=== PATIENT | female | born 1990 | race Caucasian/White ===

== ENCOUNTER 2019-04-08 04:12 | Inpatient (IN) ==
[2019-04-08] MEDS ORDERED: CLINDAMYCIN 600 MG/54 ML BAG IV ONE (04:29)
[2019-04-08] MEDS ORDERED: KETOROLAC TROMETHAMINE 15 MG/ML VIAL IV STA (04:29)
--- NOTE | 2019-04-08 04:36 | Emergency Department Note ---
History of Present Illness General Chief complaint: Facial Injury/Pain Stated complaint: ABSCESS IN MOUTH History of Present Illness Maximum Pain Intensity: 6 This 29-year-old presents to the ER complaining of worsening infection to her left lower jawline Location: Left lower jawline and face Quality: Throbbing Severity: Moderate Duration: Past week Timing: Started over a week ago Context: Symptoms got worse and patient came in Modifying factors: better with nothing; worse with palpation Patient was seen here and placed on Augmentin. Patient went to [facility] and was placed on clindamycin and had a CAT scan that showed an abscess. She was not referred to oral surgery. She was informed that this would resolve on its own with oral antibiotics. Patient states since being seen at [facility] the infection is gotten worse. She is now having difficulty opening her mouth all the way. Patient still smokes. Patient denies chest pain, dyspnea, fevers, neck stiffness, tongue swelling. Home Medications Home Medications Medication Instructions Recorded Confirmed Type L norgest/e.estradiol-e.estrad 1 tab PO DAILY 02/26/19 04/08/19 History [Seasonique] ferrous sulfate [iron] 325 mg PO DAILY 02/26/19 04/08/19 History fluoxetine [Prozac] 40 mg PO DAILY 02/26/19 04/08/19 History omeprazole 40 mg PO DAILY PRN 02/26/19 04/08/19 History clindamycin HCl 450 mg PO TID 04/08/19 04/08/19 History Allergies Allergy/AdvReac Type Severity Reaction Status Date / Time No Known Allergies Allergy Unverified 04/08/19 05:50 Past Med/Surg History Medical History Depression GERD (gastroesophageal reflux disease) IBS (irritable bowel syndrome) Surgical History No pertinent past surgical history Social History Preferred Language: German Feels Safe at Home: Yes Smoking Status: Current every day smoker Review of Systems A total of 10 systems reviewed and were otherwise negative Physical Exam Vital Signs Vital Signs - 24 hr 04/08/19 04:14 04/08/19 05:16 Temperature 36.9 C Temperature Source Oral Pulse Rate 100 H Pulse Rate [Finger] 91 H Respiratory Rate 18 18 Respiratory Effort / Characteristics Non-Labored Spontaneous Respiratory Depth Normal Normal Blood Pressure 144/93 H Blood Pressure [Left Arm] 133/93 Blood Pressure Mean 110 Blood Pressure Mean [Left Arm] 106 Pulse Oximetry 99 96 Oxygen Delivery Method Room Air Room Air Sepsis Recent Fever Within 48 Hours No Sepsis New/Unexplained Change in Mental Status No Sepsis Action Taken by Nursing No Action Required VITALS: Vitals are noted on the nurse's note and reviewed by myself. Vital signs stable. GENERAL: White female with tobacco odor speaking in full sentences, in no acute distress, nondiaphoretic, well-developed well-nourished. SKIN: The skin was without rashes, erythema, edema, or bruising. There is no tenting of the skin. Capillary reflex less than 2 seconds. HEAD: Normocephalic atraumatic. Face: Left lower jawline edematous and tender to palpation concerning for infection. EARS: External auditory canals clear, tympanic membranes pearly charkaborty without janet thema or effusion bilaterally. EYES: Pupils equal round and reactive to light and accommodation. Conjunctivae without injection, sclerae without icterus. Extraocular movements intact. NOSE: Patent, turbinates without inflammation or discharge. No sinus tenderness. MOUTH: Mucous membranes moist. Pharynx without erythema or exudate. Uvula midline. Airway patent. Tongue does not deviate. No Mj's angina.+ Trismus Dental exam: Left lower gumline erythematous and edematous concerning for infection. NECK: Supple without nuchal rigidity. Left anterior and submandibular shotty lymphadenopathy. No thyromegaly. Cervical spine is nontender. No JVD HEART: Regular rate and rhythm without murmurs gallops or rubs. LUNGS: Clear to auscultation bilaterally without wheezes, rales or rhonchi. No retractions or accessory muscle use. ABDOMEN: Positive bowel sounds x 4. Normal tympanic percussion. Soft, nontender, without masses or organomegaly. Martínez sign negative. No guarding or rebound tenderness. No CVA tenderness MUSCULOSKELETAL: No muscle atrophy, erythema, or edema noted. NEURO: Patient was alert and oriented to person place and time. Normal sensation to light and sharp touch. No focal neurological deficits. Course Administered Medications Discontinued Medications Clindamycin Phosphate (Cleocin) 600 mg in 54 mls @ 100 mls/hr IV ONE ONE Stop: 04/08/19 05:01 Last Infusion: 04/08/19 05:15 Dose: 0 mls/hr Documented by: [id number] Admin: 04/08/19 04:40 Dose: 100 mls/hr Documented by: [id number] Ketorolac Tromethamine (Toradol) 10 mg IV NOW STA Stop: 04/08/19 04:30 Last Admin: 04/08/19 04:40 Dose: 10 mg Documented by: [id number] Medical Decision Making Medical Records Attestation: I reviewed the patient's medical records. Home Medications Current Medication List: was personally reviewed by me Laboratory Data Attestation: I reviewed the patient's lab results. Result diagrams: 04/08/19 04:36 04/08/19 04:36 Lab Results 04/08/19 04/08/19 04/08/19 Range/Units 04:36 04:36 04:36 WBC 15.68 H (4.8-10.8) K/uL RBC 4.71 (4.2-5.4) M/uL Hgb 13.8 (12.0-16.0) g/dL Hct 41.7 (37-47) % MCV 88.5 (80-100) fL MCH 29.3 (25-34) pg MCHC 33.1 (32-36) g/dL RDW Std Deviation 46.2 (36.4-46.3) fL RDW Coeff of Chun 14.1 (11.5-14.5) % Plt Count 421 H (130-400) K/uL MPV 9.7 (7.4-10.4) fL Immature Gran % (Auto) 0.8 % Neut % (Auto) 65.4 % Lymph % (Auto) 26.9 % [place] % (Auto) 6.5 % Eos % (Auto) 0.3 % Baso % (Auto) 0.1 % Immature Gran # (Auto) 0.13 H (0.00-0.02) K/uL Neut # (Auto) 10.24 H (1.4-6.5) K/uL Lymph # (Auto) 4.22 H (1.2-3.4) K/uL [place] # (Auto) 1.02 H (0.11-0.59) K/uL Eos # (Auto) 0.05 (0-0.5) K/uL Baso # (Auto) 0.02 (0-0.2) K/uL Sodium 140 (136-145) mmol/L Potassium 3.6 (3.5-5.1) mmol/L Chloride 107 (98-107) mmol/L Carbon Dioxide 27 (21-32) mmol/L Anion Gap 6.0 (3-11) BUN 13 (7-18) mg/dl Creatinine 0.89 (0.6-1.2) mg/dl Est Cr Clr Drug Dosing 91.3 ml/min Est GFR ( Amer) 100.1 Est GFR (Non-Af Amer) 86.4 BUN/Creatinine Ratio 14.9 (10-20) Glucose 99 (70-99) mg/dl Calcium 8.7 (8.5-10.1) mg/dl Total Bilirubin 0.2 (0.2-1) mg/dl AST 8 L (15-37) U/L ALT 19 (12-78) U/L Alkaline Phosphatase 71 (45-117) U/L Total Protein 7.3 (6.4-8.2) gm/dl Albumin 3.4 (3.4-5.0) gm/dl Globulin 3.9 (2.5-4.0) gm/dl Albumin/Globulin Ratio 0.9 (0.9-2) HCG, Qual Negative (Negative) Prescription Drug Monitoring [place] Drug Monitoring Program reviewed and no issues identified MDM Narrative Prior records reviewed and summarized as above. Triage Nursing notes reviewed. The patient's history was concerning for mouth problem. Differential diagnosis: Etiologies such as cellulitis, abscess, Mj's angina, gingivitis, dental cavity, dental decay, dental infection, as well as others were entertained.. Physical examination: As above ER treatment provided: Toradol, Cleocin On reassessment the patient felt better. Diagnostics interpreted by me: The labs revealed leukocytosis which is the same level as it was 2 days ago at [facility]. Negative hCG Imaging studies: I obtain the records from [facility] and patient has a left facial cellulitis with loculated abscesses measuring up to 2.3 cm tracking along the left platysma. This was done on 04/05/2019 at 11:41 AM Consultation: A consultation was placed with Dr. Irizarry and recommends medical admission and will evaluate the patient and most likely take her to the OR today. I spoke to Dr. Szymanski, hospitalist. The case was discussed and diagnostics were reviewed. The patient was evaluated in the ER for further treatment. This appears to be facial cellulitis with abscess. Patient will be admitted. Oral surgery was consulted and will see the patient today. Medicine will take the admission. Patient is agreeable. She was given IV antibiotics and placed n.p.o. For possible surgery today. By the evaluation outlined above emergent etiologies such as Mj's angina, as well as others were deemed relatively unlikely. The pt informed about the findings as listed above. All questions were answered and pleased with the treatment. The chart was completed utilizing [employer] Speech voice recognition software. Grammatical errors, random word insertions, pronoun errors, and incomplete sente nces are an occassional consequence of this system due to software limitations, ambient noise, and hardware issues. Any formal questions or concerns about the content, text, or information contained within the body of this dictation should be directly addressed to the physician wet process miller head assistant for clarification. Impression & Plan Cellulitis and abscess of face, Dental abscess Discharge Plan Visit Data Chief Complaint: Facial Injury/Pain Stated Complaint: ABSCESS IN MOUTH ED Provider: Lenin Issa ED Midlevel Provider: Monica Petersen Discharge Problem: Cellulitis and abscess of face, Dental abscess Patient Disposition: Being Evaluated by Hospitalist Condition: Good Forms Stand Alone Forms: My [facility] Prescriptions Prescriptions: No Action clindamycin HCl 150 mg capsule 450 mg PO TID RF: 0 fluoxetine [Prozac] 40 mg Capsule 40 mg PO DAILY RF: 0 omeprazole 40 mg Capsule,Delayed Release(Dr/Ec) 40 mg PO DAILY PRN (Reason: Heartburn) RF: 0 ferrous sulfate [iron] 325 mg (65 mg iron) Tablet 325 mg PO DAILY RF: 0 L norgest/e.estradiol-e.estrad [Seasonique] 0.15 mg-30 mcg (84)/10 mcg (7) Tablets,Dose Pack,3 Month 1 tab PO DAILY RF: 0 Referrals Referrals: Sushma Spear DO [Primary Care Provider] -
[2019-04-08 04:49] LABS: Basophils # (auto) 0.02 K/uL (0-0.2); Basophils % (auto) 0.1 %; Eosinophils # (auto) 0.05 K/uL (0-0.5); Eosinophils % (auto) 0.3 %; Hematocrit (blood only) 41.7 % (37-47); Hemoglobin 13.8 g/dL (12.0-16.0); Immature Granulocytes # (auto) 0.13 K/uL (0.00-0.02); Immature Granulocytes % (auto) 0.8 %; Lymphocytes # (auto) 4.22 K/uL (1.2-3.4); Lymphocytes % (auto) 26.9 %; Mean Corpuscular Hemoglobin 29.3 pg (25-34); Mean Corpuscular Hgb Conc 33.1 g/dL (32-36); Mean Corpuscular Volume 88.5 fL (80-100); Mean Platelet Volume 9.7 fL (7.4-10.4); Monocytes # (auto) 1.02 K/uL (0.11-0.59); Monocytes % (auto) 6.5 %; Neutrophils # (auto) 10.24 K/uL (1.4-6.5); Neutrophils % (auto) 65.4 %; Platelet Count 421 K/uL (130-400); RDW Coefficient of Variation 14.1 % (11.5-14.5); RDW Standard Deviation 46.2 fL (36.4-46.3); Red Blood Count 4.71 M/uL (4.2-5.4); White Blood Count 15.68 K/uL (4.8-10.8)
[2019-04-08 05:06] LABS: Albumin Level 3.4 gm/dl (3.4-5.0); BUN Creatinine Ratio 14.9 (10-20); Calcium 8.7 mg/dl (8.5-10.1); Creatinine Clr Calc Pharmacy 91.3 ml/min; Est GFR (African American) 100.1; Est GFR (Non-African American) 86.4; Potassium 3.6 mmol/L (3.5-5.1)
[2019-04-08 05:09] LABS: Albumin Globulin Ratio 0.9 (0.9-2); Bilirubin,Total 0.2 mg/dl (0.2-1); Globulin 3.9 gm/dl (2.5-4.0); Total Protein 7.3 gm/dl (6.4-8.2)
[2019-04-08 05:14] LABS: Pregnancy Test, Serum Negative (Negative)
[2019-04-08] MEDS ORDERED: LACTATED RINGER'S 1,000 ML IV STA (06:20)
[2019-04-08] MEDS ORDERED: PIPERACILL/TAZOBAC CONSULT ACTIVE PRN (06:25)
[2019-04-08] MEDS ORDERED: PIPERACILLIN/TAZOBACTAM 4.5 GM/120 ML BAG IV STA (06:28)
[2019-04-08 06:48] LABS: Magnesium 2.1 mg/dl (1.8-2.4); Thyroid Stimulating Hormone 4.35 uIu/ml (0.300-4.500)
--- NOTE | 2019-04-08 06:54 | History & Physical Report ---
Date of Service April 08, 2019 Assessment & Plan (1) Sepsis: Secondary to left facial abscess Primary cutaneous infection secondary to acne lesion manipulation Failed outpatient treatment anxiety/mood disorder, at baseline ongoing tobacco abuse Medical telemetry Cultures, check lactic acid IVF, daptomycin, Zosyn Maxillofacial surgery consult (ER provider already in touch with Dr. Irizarry who contemplates possible OR in a.m.) Nicotine patch PRN DVT prophylaxis. Lovenox subcu Full code Text document was generated using [employer] voice recognition software. It may contain grammatical or spelling errors. Kindly contact undersigned for clarification of any documentation item in question. History of Present Illness Chief Complaint: Worsening left facial swelling Primary Care Provider: Sushma Spear DO (Patient yet to have her first appointment with new PCP.) History obtained from patient and records. Medical history significant for anxiety/mood disorder, GERD, ongoing tobacco abuse. 1 week history of left cheek swelling which started from patient manipulation of a pimple on the left side of her cheek. No tooth ache, no sore throat symptoms. Some trouble opening mouth secondary to swelling. Patient started on Augmentin outpatient by medical provider. Patient seen at [facility] 3 days ago for worsening swelling without fever without chills. CAT scan maxillofacial CT showed left facial cerebritis with loculated abscess measuring 2.3 cm tracking along left platysma. No I&D done at the [facility]. Augmentin switched to clindamycin by ER provider. Worsening symptoms despite medication compliance. Patient denies chest pain, S OB. At the ER, patient received IV clindamycin. Medical History as above Surgical History : Dental surgery Family History : Asthma, celiac disease Personal/Social history : Half pack daily, occasional EtOH intake, registered nurse Allergies Allergy/AdvReac Type Severity Reaction Status Date / Time No Known Allergies Allergy Unverified 04/08/19 05:50 Home Medications Home Medications Medication Instructions Recorded Confirmed Type L norgest/e.estradiol-e.estrad 1 tab PO DAILY 02/26/19 04/08/19 History [Seasonique] ferrous sulfate [iron] 325 mg PO DAILY 02/26/19 04/08/19 History fluoxetine [Prozac] 40 mg PO DAILY 02/26/19 04/08/19 History omeprazole 40 mg PO DAILY PRN 02/26/19 04/08/19 History clindamycin HCl 450 mg PO TID 04/08/19 04/08/19 History Past Med/Surg History Medical History Depression GERD (gastroesophageal reflux disease) IBS (irritable bowel syndrome) Surgical History No pertinent past surgical history Social History Preferred Language: Romanian Communication Ability: Effective Stone Trimmer Required: No Beliefs That Will Affect Care: None Current Living Situation: Family Feels Safe at Home: Yes Smoking Status: Current every day smoker Tobacco Type: cigarettes and smokeless tobacco ; Cigarettes Per Day: 10 ; Hx Alcohol Use: No Hx Substance Use: No Review of Systems Review of Systems: As per HPI, all 10 systems reviewed, all other ROS negative Physical Exam Physical Exam: GENERAL: Slightly uncomfortable, obese, pleasant, no stridor, no respiratory distress SKIN: Normal color, warm HEENT: [place] palpebral conjunctivae, no ptosis, dry buccal mucosa, tender left facial swelling commencing from the angle of the mouth going down to the left neck NECK : Supple, no tenderness CHEST : CTA, no tenderness HEART : RRR, no obvious murmurs ABDOMEN: Some distention, nontender EXTREMITIES : No LE swelling/tenderness, no other conspicuous deformities noted NEUROLOGIC : Coherent, no facial asymmetry, no other gross focality Results & Data Vital Signs (Past 12 Hours) Vital Signs Temp Pulse Pulse Resp BP BP Pulse Ox 04/08/19 06:00 87 18 132/84 96 04/08/19 05:16 91 H 18 133/93 96 04/08/19 04:14 36.9 C 100 H 18 144/93 H 99 Laboratory Results Laboratory Results WBC 15.68 K/uL (4.8-10.8) H 04/08/19 04:36 RBC 4.71 M/uL (4.2-5.4) 04/08/19 04:36 Hgb 13.8 g/dL (12.0-16.0) 04/08/19 04:36 Hct 41.7 % (37-47) 04/08/19 04:36 MCV 88.5 fL (80-100) 04/08/19 04:36 MCH 29.3 pg (25-34) 04/08/19 04:36 MCHC 33.1 g/dL (32-36) 04/08/19 04:36 RDW Std Deviation 46.2 fL (36.4-46.3) 04/08/19 04:36 RDW Coeff of Chun 14.1 % (11.5-14.5) 04/08/19 04:36 Plt Count 421 K/uL (130-400) H 04/08/19 04:36 MPV 9.7 fL (7.4-10.4) 04/08/19 04:36 Immature Gran % (Auto) 0.8 % 04/08/19 04:36 Neut % (Auto) 65.4 % 04/08/19 04:36 Lymph % (Auto) 26.9 % 04/08/19 04:36 [place] % (Auto) 6.5 % 04/08/19 04:36 Eos % (Auto) 0.3 % 04/08/19 04:36 Baso % (Auto) 0.1 % 04/08/19 04:36 Immature Gran # (Auto) 0.13 K/uL (0.00-0.02) H 04/08/19 04:36 Neut # (Auto) 10.24 K/uL (1.4-6.5) H 04/08/19 04:36 Lymph # (Auto) 4.22 K/uL (1.2-3.4) H 04/08/19 04:36 [place] # (Auto) 1.02 K/uL (0.11-0.59) H 04/08/19 04:36 Eos # (Auto) 0.05 K/uL (0-0.5) 04/08/19 04:36 Baso # (Auto) 0.02 K/uL (0-0.2) 04/08/19 04:36 Sodium 140 mmol/L (136-145) 04/08/19 04:36 Potassium 3.6 mmol/L (3.5-5.1) 04/08/19 04:36 Chloride 107 mmol/L (98-107) 04/08/19 04:36 Carbon Dioxide 27 mmol/L (21-32) 04/08/19 04:36 Anion Gap 6.0 (3-11) 04/08/19 04:36 BUN 13 mg/dl (7-18) 04/08/19 04:36 Creatinine 0.89 mg/dl (0.6-1.2) 04/08/19 04:36 Est Cr Clr Drug Dosing 91.3 ml/min 04/08/19 04:36 Est GFR ( Amer) 100.1 04/08/19 04:36 Est GFR (Non-Af Amer) 86.4 04/08/19 04:36 BUN/Creatinine Ratio 14.9 (10-20) 04/08/19 04:36 Glucose 99 mg/dl (70-99) 04/08/19 04:36 Calcium 8.7 mg/dl (8.5-10.1) 04/08/19 04:36 Magnesium 2.1 mg/dl (1.8-2.4) 04/08/19 04:36 Magnesium Cancelled 04/08/19 04:36 Total Bilirubin 0.2 mg/dl (0.2-1) 04/08/19 04:36 AST 8 U/L (15-37) L 04/08/19 04:36 ALT 19 U/L (12-78) 04/08/19 04:36 Alkaline Phosphatase 71 U/L (45-117) 04/08/19 04:36 Total Protein 7.3 gm/dl (6.4-8.2) 04/08/19 04:36 Albumin 3.4 gm/dl (3.4-5.0) 04/08/19 04:36 Globulin 3.9 gm/dl (2.5-4.0) 04/08/19 04:36 Albumin/Globulin Ratio 0.9 (0.9-2) 04/08/19 04:36 TSH 4.350 uIu/ml (0.300-4.500) 04/08/19 04:36 TSH Cancelled 04/08/19 04:36 HCG, Qual Negative (Negative) 04/08/19 04:36
[2019-04-08] MEDS ORDERED: DAPTOmycin 200 MG in SYRINGE 0 ML IV STA (06:59)
[2019-04-08] MEDS ORDERED: DAPTOMYCIN CONSULT ACTIVE PRN (07:00)
--- NOTE | 2019-04-08 08:40 | Surgery Consultation ---
Date of Consultation April 08, 2019 Facial Swelling (infection) Consult Present Complaint: indurated swelling left mental area (left chin) corner of the mouth and upper lip (extending almost to middle of upper lip) This started as a small pimple left inferior boarder of lower jaw--she popped the pimple on Apr 01.--- Apr 03 started to swell--she had Augmentin from past oral surgery and started taking this. Apr 05.---increase in swelling and hardness--went to [facility] in [place].CT scan taken and Rx Clindamycin and sent home. Apr 06-.---Over the weekend got progressively worse and she presented to [facility] ED this morning. Apr 08.---Today--red, indurated area from lower lip/upper lip/corner of the mouth. Patient seen in room A-3 [facility]: Not ready for I&D today--no drainable pus very indurated and very painful. 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 A detailed oral exam was completed--No dental etiology noted, healing past extraction sites Oral Care---Overall oral care is good The soft tissue of the tongue, floor of mouth, gingival, palate (hard/soft) all WNL I reviewed the records from [place] as well as the CT on the workstation--agree with findings. Neck--- is supple, FROM, Able to extend and flex neck w/o difficulty, no masses, no abnormalities.Swelling localized to facial muscle area involving the left chin, corners or the mouth and lips left side. Plan: Admission to medical service. IV antibiotics Heat to area of left side of the face Diet as tolerated I will Plan I and D when fluctuance develops or If IV antibiotics controls the infection then I will follow as out patient. History of Present Illness Allergies Allergy/AdvReac Type Severity Reaction Status Date / Time No Known Allergies Allergy Unverified 04/08/19 05:50 Home Medications Home Medications Medication Instructions Recorded Confirmed Type L norgest/e.estradiol-e.estrad 1 tab PO DAILY 02/26/19 04/08/19 History [Seasonique] ferrous sulfate [iron] 325 mg PO DAILY 02/26/19 04/08/19 History fluoxetine [Prozac] 40 mg PO DAILY 02/26/19 04/08/19 History omeprazole 40 mg PO DAILY PRN 02/26/19 04/08/19 History clindamycin HCl 450 mg PO TID 04/08/19 04/08/19 History Patient History Medical History Depression GERD (gastroesophageal reflux disease) IBS (irritable bowel syndrome) Surgical History No pertinent past surgical history Social History Preferred Language: French Communication Ability: Effective Lifts And Cranes Inspector Required: No Beliefs That Will Affect Care: None Current Living Situation: Family Other Information That Helps Us Care for You: No Feels Safe at Home: Yes Safety Concerns: Feels Safe At This Time Smoking Status: Current every day smoker Tobacco Type: cigarettes and smokeless tobacco ; Cigarettes Per Day: 10 ; Hx Alcohol Use: No Hx Substance Use: No Results & Data Vital Signs (Past 12 Hours) Vital Signs Temp Pulse Pulse Resp BP BP Pulse Ox 04/08/19 07:00 86 18 122/84 98 04/08/19 06:00 87 18 132/84 96 04/08/19 05:16 91 H 18 133/93 96 04/08/19 04:14 36.9 C 100 H 18 144/93 H 99 PG Care Time/CCT Total # of Minutes Spent Total Time Spent with Patient: Total time spent is greater than 50% in coordination of care (as documented) at patient's floor/unit and/or counseling patient: Coding Level of Care Code 25768 Office/OBS Consult Lvl 3
[2019-04-08] MEDS ORDERED: TRAMADOL HCL 50 MG TABLET PO PRN (08:59)
[2019-04-08] MEDS ORDERED: LORazepam 0.25 MG/0.5 ML VIAL IV PRN (08:59)
[2019-04-08] MEDS ORDERED: LACTATED RINGER'S 1,000 ML IV SCH (08:59)
[2019-04-08] MEDS ORDERED: PROMETHAZINE HCL 12.5 MG in SODIUM CHLORIDE 0.9% 50 ML IV PRN (08:59)
[2019-04-08] MEDS ORDERED: ACETAMINOPHEN 325 MG TAB PO PRN (08:59)
[2019-04-08] MEDS ORDERED: IBUPROFEN 200 MG TAB PO PRN (08:59)
[2019-04-08] MEDS ORDERED: PANTOprazole 40 MG TAB PO PRN (09:18)
[2019-04-08] MEDS: KETOROLAC TROMETHAMINE 15 MG/ML VIAL IV PRN ×2 (09:33→16:48)
[2019-04-08] MEDS: FLUOXETINE HCL 20 MG CAP PO SCH (10:19)
[2019-04-08] MEDS: NICOTINE 14 MG/24 HR PATCH TD SCH (10:19)
--- NOTE | 2019-04-08 10:58 | Hospitalist Progress Note ---
Date of Service April 08, 2019 Assessment & Plan (1) Sepsis: Secondary to left facial abscess Primary cutaneous infection secondary to acne lesion manipulation Failed outpatient treatment -- afebrile, HR improved -- ff up blood cultures -- continue IV Dapto + Zosyn Dr. Irizarry consulted, recommend IV antibiotics for now, if without improvement, will need I&D, NPO after midnight continue IV fluids Anxiety/mood disorder -- stable Hyperglycemia possibly secondary to steroid administration prior to IV dye administration for recent contrast CT study rule out DM -- check A1c ongoing tobacco abuse -- nicotine patch DVT prophylaxis. Lovenox subcu Full code Admission and Anticipated Discharge Date Admission Date: April 08, 2019 Subjective ff up for facial cellulitis, abscess in the platysma seen sitting up in bed, comfortable states pain is improving has some mild trismus denies lip, tongue, throat swelling denies chest pain, dyspnea, palpitations, dizziness no other symptoms Review of Systems Review of Systems: All systems reviewed & are unremarkable except as noted in HPI & below Physical Exam Physical Exam: General- oriented x 3, not in distress, speaks in sentences with no effort or accessory muscle use Head- atraumatic Eyes- PERRL, EOMI, anicteric Face- (+) moderate edema left cheek, mild tenderness, no erythema/warmth ENT- oropharynx clear, (+) moderate edema left side of the neck with moderate tenderness Neck- supple, no JVD, no adenopathy, no thyromegaly; carotids +2/2, no bruits appreciated Lungs- clear to auscultation bilaterally, no rales/wheezes Heart- normal rate, regular rhythm; no murmur, no gallop, no rub appreciated Abdomen- normal bowel sounds, nondistended, soft, nontender, no masses or hepatosplenomegaly Extremities- no pretibial edema, no calf tenderness; peripheral pulses intact Neuro- alert, oriented x 3; CN 2-12 grossly intact; motor 5/5 bilaterally;sensation 100% on all extremities; no other gross focal neurologic deficits Skin- warm & dry Results & Data ([facility]) Vital Signs (Past 12 Hours) Vital Signs Temp Pulse Pulse Resp BP BP Pulse Ox 04/08/19 09:15 36.9 C 84 16 122/83 97 04/08/19 09:00 84 04/08/19 07:00 86 18 122/84 98 04/08/19 06:00 87 18 132/84 96 04/08/19 05:16 91 H 18 133/93 96 04/08/19 04:14 36.9 C 100 H 18 144/93 H 99
[2019-04-08] MEDS: ENOXAPARIN INJ 40 MG/0.4 ML SYR SQ SCH (11:11)
[2019-04-08] MEDS: PIPERACILLIN/TAZOBACTAM 3.375 GM in DEXTROSE 5% 100 ML IV SCH ×2 (11:11→19:58)
[2019-04-08] MEDS: D5NSS + 20MEQ KCL 20 MEQ/1,000 ML BAG IV SCH (11:18)
[2019-04-08] MEDS: ACETAMINOPHEN 1,000 MG/100 ML VIAL IV SCH ×2 (11:55→19:57)
[2019-04-08 12:22] LABS: Pregnancy Test, Urine Negative (Negative)
--- NOTE | 2019-04-08 18:28 | Surgery Progress Note ---
Date of Service Follow up note at 6:15 pm Avani is in room 255--The swelling is starting to get softer and starting to organize with the IV antibiotics. I hope to do an I&D tomorrow if the area continues to come to a head. I will set up surgery for tomorrow but reserve the decision until tomorrow morning. PLAN; Reviewed procedure of the I&D with GA in OR Diet as tolerated tonight NPO midnight I will evaluate in AM If ready --plan I&D If not yet ready will defer the surgery until Mon. Apr 10. April 08, 2019 Results & Data Vital Signs (Past 12 Hours) Vital Signs Temp Pulse Pulse Resp BP Pulse Ox 04/08/19 15:00 37.0 C 99 H 16 124/91 97 04/08/19 14:21 83 04/08/19 12:16 37.1 C 91 H 18 132/79 97 04/08/19 11:16 37.1 C 84 18 129/90 96 04/08/19 09:15 36.9 C 84 16 122/83 97 04/08/19 09:00 84 04/08/19 07:00 86 18 122/84 98 PG Care Time/CCT Total # of Minutes Spent Total Time Spent with Patient: Total time spent is greater than 50% in coordination of care (as documented) at patient's floor/unit and/or counseling patient: Coding Level of Care Code 81915 Subseq Hosp Care Lvl 1
[2019-04-09] MEDS: KETOROLAC TROMETHAMINE 15 MG/ML VIAL IV PRN ×3 (00:07→16:02)
[2019-04-09] MEDS: D5NSS + 20MEQ KCL 20 MEQ/1,000 ML BAG IV SCH ×2 (00:08→15:25)
[2019-04-09] MEDS: ACETAMINOPHEN 1,000 MG/100 ML VIAL IV SCH ×3 (03:19→19:42)
[2019-04-09] MEDS: PIPERACILLIN/TAZOBACTAM 3.375 GM in DEXTROSE 5% 100 ML IV SCH ×3 (03:46→20:51)
[2019-04-09 06:39] LABS: Basophils # (auto) 0.03 K/uL (0-0.2); Basophils % (auto) 0.2 %; Eosinophils # (auto) 0.46 K/uL (0-0.5); Eosinophils % (auto) 3.2 %; Hematocrit (blood only) 40.8 % (37-47); Hemoglobin 13.4 g/dL (12.0-16.0); Immature Granulocytes % (auto) 0.7 %; Lymphocytes # (auto) 3.41 K/uL (1.2-3.4); Lymphocytes % (auto) 23.7 %; Mean Corpuscular Hemoglobin 29.4 pg (25-34); Mean Corpuscular Hgb Conc 32.8 g/dL (32-36); Mean Corpuscular Volume 89.5 fL (80-100); Mean Platelet Volume 10.1 fL (7.4-10.4); Monocytes # (auto) 1.08 K/uL (0.11-0.59); Monocytes % (auto) 7.5 %; Neutrophils # (auto) 9.31 K/uL (1.4-6.5); Neutrophils % (auto) 64.7 %; Platelet Count 377 K/uL (130-400); RDW Coefficient of Variation 14.3 % (11.5-14.5); RDW Standard Deviation 47.1 fL (36.4-46.3); Red Blood Count 4.56 M/uL (4.2-5.4); White Blood Count 14.39 K/uL (4.8-10.8)
[2019-04-09 07:15] LABS: Calcium 8.6 mg/dl (8.5-10.1); Creatinine Clr Calc Pharmacy 115.7 ml/min; Est GFR (African American) 133.8; Est GFR (Non-African American) 115.5; Potassium 4.2 mmol/L (3.5-5.1)
[2019-04-09] MEDS: DAPTOmycin 225 MG in SYRINGE 0 ML IV SCH (07:47)
--- NOTE | 2019-04-09 07:52 | Surgery Progress Note ---
Date of Service 7:45 am The area is now ready for drainage this afternoon in OR under GA. I reviewed the procedure with Avani--I&D cheek and left upper lip. I will obtain C&S to R/O MRSA infection to help with post op antibiotics. Consent signed--await time for OR. April 09, 2019 Results & Data Vital Signs (Past 12 Hours) Vital Signs Temp Pulse Resp BP Pulse Ox 04/09/19 07:22 37.0 C 87 18 136/94 97 04/09/19 04:58 36.8 C 87 20 117/82 98 04/08/19 23:56 37.1 C 85 20 121/77 92 PG Care Time/CCT Total # of Minutes Spent Total Time Spent with Patient: Total time spent is greater than 50% in coordination of care (as documented) at patient's floor/unit and/or counseling patient: Coding Level of Care Code None
[2019-04-09] MEDS: FERROUS SULFATE 325 MG TAB PO SCH (08:00)
[2019-04-09] MEDS: FLUOXETINE HCL 20 MG CAP PO SCH (08:01)
[2019-04-09] MEDS: NICOTINE 14 MG/24 HR PATCH TD SCH (08:02)
[2019-04-09] MEDS ORDERED: fentaNYL citrate 100 MCG/2 ML VIAL ONE ×2 (12:45→13:30)
[2019-04-09] MEDS ORDERED: MIDAZOLAM HCL 1 MG/ML 2ML VIAL ONE (12:45)
--- NOTE | 2019-04-09 13:04 | Anesthesiology Consultation ---
Date of Service April 09, 2019 Assessment & Plan ASA ASA2 Proposed Anesthesia Anesthesia Type: General Risk / Benefits Reviewed With: PT / POA / Parent / Guardian, Accepts Plan and Informed Consent Obtained History Surgery Operation Date: 04/09/19 12:00 Proposed Procedures p Incision and Drainage General - Amrik Irizarry DMD Height/Weight Height: 5 ft 3 in Weight: 78.8 kg Allergies Allergy/AdvReac Type Severity Reaction Status Date / Time No Known Allergies Allergy Unverified 04/08/19 05:50 Medications Home Medications Medication Instructions Recorded Confirmed Last Taken L norgest/e.estradiol-e.estrad 1 tab PO DAILY 02/26/19 04/08/19 04/07/19 [Seasonique] ferrous sulfate [iron] 325 mg PO DAILY 02/26/19 04/08/19 02/26/19 08:00 fluoxetine [Prozac] 40 mg PO DAILY 02/26/19 04/08/19 04/07/19 omeprazole 40 mg PO DAILY PRN 02/26/19 04/08/19 02/26/19 08:00 clindamycin HCl 450 mg PO TID 04/08/19 04/08/19 04/07/19 Active Medications Generic Name Dose Route Start Last Admin Trade Name Freq PRN Reason Stop Dose Admin Enoxaparin Sodium 40 mg 04/08/19 09:00 04/08/19 11:11 Lovenox SQ 05/08/19 08:59 Not Given QAM MONIQUE Ferrous Sulfate 325 mg 04/09/19 09:00 04/09/19 08:00 Feosol PO 05/09/19 08:59 325 mg DAILY MONIQUE Administration Fluoxetine HCl 40 mg 04/08/19 09:00 04/09/19 08:01 Prozac PO 05/08/19 08:59 40 mg DAILY MONIQUE Administration Piperacillin Sod/Tazobactam 115 mls @ 28.75 mls/hr 04/08/19 12:00 04/09/19 11:54 Sod 3.375 gm/ Dextrose IV 04/15/19 11:59 28.8 mls/hr Q8H MONIQUE Administration Protocol Daptomycin 225 mg/ Syringe 4.5 mls @ 2.25 mls/min 04/09/19 08:00 04/09/19 07:47 IV 04/15/19 07:59 2.25 mls/min Q24H MONIQUE Administration Protocol Acetaminophen 1,000 mg in 100 mls @ 400 mls/hr 04/08/19 11:00 04/09/19 11:30 Ofirmev IV 04/11/19 10:59 Infused Q8H MONIQUE Infusion Potassium Chloride/Dextrose/Sod Cl 20 meq in 1,000 mls @ 75 mls/hr 04/08/19 1 1:00 04/09/19 12:35 D5nss + 20meq Kcl IV 05/08/19 10:59 0 mls/hr .[id number] MONIQUE Infusion Ketorolac Tromethamine 15 mg 04/08/19 08:59 04/09/19 07:47 Toradol IV 04/13/19 08:58 15 mg Q6H PRN Administration Pain Miscellaneous 1 ea 04/09/19 08:59 04/09/19 08:00 Remove Nicoderm Patch N/A 05/09/19 08:58 1 ea [id number] MONIQUE Administration Nicotine 14 mg 04/08/19 09:15 04/09/19 08:02 Nicoderm Cq TD 05/08/19 09:14 14 mg QAM MONIQUE Administration NPO Date Last Intake of Fluids: 04/08/19 Time Last Intake of Fluids: 23:00 Date Last Intake of Solids: 04/08/19 Time Last Intake of Solids: 19:00 Past Medical History Medical History Depression GERD (gastroesophageal reflux disease) IBS (irritable bowel syndrome) Exercise / Class Metabolic Activity II 4-5 Yardwork/Stairs/Walk up hill Past Surgical History Surgical History No pertinent past surgical history Past Anesthesia History No Hx of Anesthesia Complications and No Family Hx of Anesthesia Complications History of PONV No Hx of PONV and No Hx of Motion Sickness Social History Smoking Status: Current every day smoker tobacco type: cigarettes and smokeless tobacco Smoking cigarettes per day: 10 Hx Alcohol Use: No Hx Substance Use: No Review of Systems denies fever/cough/ colds/ chest pain/ SOB/ MICH Constitutional: no fever and no chills Respiratory: no cough and no dyspnea denies MICH Cardiovascular: no chest pain and no dyspnea on exertion Physical Exam Vital Signs Last Vital Signs Temp 37.0 C 04/09/19 12:48 Pulse 96 H 04/09/19 12:48 Resp 16 04/09/19 12:48 BP 124/88 04/09/19 12:48 Pulse Ox 95 04/09/19 12:48 ENMT Mouth: + dentition abnormality (3 missing teeth) and + small oral opening (Limited by pain from left sided abcess); no TMJ abnormality Thyromental Distance: > or= 3.5 Finger Breadths Mallampati Class: III Neck neck extension not limited Respiratory normal respiratory effort; no respiratory distress Auscultation: lungs clear to auscultation bilaterally Cardiovascular Rate/Rhythm: regular rate and regular rhythm Neurologic moves all extremities Psychiatric Orientation: alert and oriented x 3 Testing Laboratory Results 04/09/19 05:46 04/09/19 05:46 Urine Test Negative (Negative) 04/08/19 04:40 04/08/19 07:21 Aerobic Blood Culture - Preliminary Blood No growth in Aerobic bottle after 24 hours. Anaerobic Blood Culture - Preliminary No growth in Anaerobic bottle after 24 hours. 04/08/19 07:19 Aerobic Blood Culture - Preliminary Blood No growth in Aerobic bottle after 24 hours. Anaerobic Blood Culture - Preliminary No growth in Anaerobic bottle after 24 hours. 04/08/19 04:40 Urine Test Negative
--- NOTE | 2019-04-09 13:07 | History & Physical Bridge Note ---
Date of Service April 09, 2019 History & Physical Bridge Note I have examined the patient, reviewed the History & Physical and in the interval since the performance of the History & Physical I have noted the following changes of clinical significance: no changes noted. The area is more fluctuant this afternoon --I will plan I&D of left facial abscess.
[2019-04-09] MEDS ORDERED: LIDOCAINE/EPINEPHRINE 1% 20 ML VIAL ONE (13:25)
[2019-04-09] MEDS ORDERED: ATROPINE SULFATE 0.1 MG/ML 10ML SYR IV PRN (13:41)
[2019-04-09] MEDS ORDERED: PROMETHAZINE HCL 12.5 MG in SODIUM CHLORIDE 0.9% 50 ML IV PRN (13:41)
[2019-04-09] MEDS ORDERED: fentaNYL citrate 100 MCG/2 ML VIAL IV PRN (13:41)
[2019-04-09] MEDS ORDERED: HYDROmorphone INJ 2 MG/ML SYR/VIAL IV PRN (13:41)
[2019-04-09] MEDS ORDERED: ePHEDrine sulfate 50 MG/ML AMP IV PRN (13:41)
[2019-04-09] MEDS ORDERED: ONDANSETRON INJ 2 MG/ML 2 ML VIAL IV PRN (13:41)
[2019-04-09] MEDS ORDERED: LIDOCAINE HCL 2% 2 ML VIAL/AMP(20MG/ML) INFIL ONE (13:50)
[2019-04-09] MEDS ORDERED: ROCURONIUM BROMIDE 10 MG/ML 5 ML VIAL ONE (13:50)
[2019-04-09] MEDS ORDERED: PROPOFOL IV EMULSION 10 MG/ML 20 ML VIAL IV ONE (13:50)
[2019-04-09] MEDS ORDERED: NEOSTIGMINE METHYLSULFATE 5 MG/5 ML SYR ONE (13:51)
[2019-04-09] MEDS ORDERED: DEXAMETHASONE SOD INJ 4 MG/ML VIAL ONE (13:51)
[2019-04-09] MEDS ORDERED: GLYCOPYRROLATE 0.2 MG/ML VIAL ONE (13:51)
[2019-04-09] MEDS ORDERED: ONDANSETRON INJ 2 MG/ML 2 ML VIAL ONE (13:51)
--- NOTE | 2019-04-09 14:00 | Post Operative Brief Note ---
PG Immediate Post Op with CF Date of Surgery April 09, 2019 Pre & Post Diagnosis Operation Date: 04/09/19 12:00 Pre-Op Diagnosis: FACIAL SEPSIS- LEFT SIDE Post-Op Diagnosis: SEPSIS (SAME) I identified the patient and participated in the time-out.: Yes Procedure Operation Date: 04/09/19 12:00 Actual Procedures p left face abscess Incision and Drainage(Left) - Amrik Irizarry DMD Surgeon Amrik Irizarry, ANGELINE Pull Over none Estimated Blood Loss 10 Findings Consistent with Post-Op Diagnosis Specimens Specimen Description: Culture #1: Superficial Facial Abscess for Aerobic, Anaerobic, and Gramstain with sensitivity Culture #2: Deep Facial Abscess for Aerobic, Anaerobic, and Gramstain with sensitivity Drains Ruddy Drain (portion left in site per Dr. Irizarry; 02/23)
--- NOTE | 2019-04-09 14:35 | Anesthesiology Progress Note ---
Date of Service April 09, 2019 Anesthesia Post Procedure Vital Signs Vital Signs: Temp Pulse Pulse Resp BP BP Pulse Ox 04/09/19 14:13 36.8 C 102 H 15 132/94 94 04/09/19 12:48 37.0 C 96 H 16 124/88 95 04/09/19 07:22 37.0 C 87 18 136/94 97 04/09/19 04:58 36.8 C 87 20 117/82 98 04/08/19 23:56 37.1 C 85 20 121/77 92 04/08/19 19:24 37.1 C 96 H 18 121/82 96 04/08/19 15:00 37.0 C 99 H 16 124/91 97 Pain Intensity Face: Pain Intensity: 0 Transfer of Care Handoff Completed per policy Notes Mental Status: alert / awake / arousable and participated in evaluation Patient Amnestic to Procedure: Yes Nausea / Vomiting: adequately controlled Pain: adequately controlled Airway Patency, RR, SpO2: stable & adequate BP & HR: stable & adequate Hydration State: stable & adequate Anesthetic Complications: no major complications apparent and Pt Satisfied with anesthetic care
[2019-04-09] MEDS: ENOXAPARIN INJ 40 MG/0.4 ML SYR SQ SCH (16:09)
[2019-04-10] MEDS: ACETAMINOPHEN 1,000 MG/100 ML VIAL IV SCH ×2 (03:43→09:56)
[2019-04-10] MEDS: PIPERACILLIN/TAZOBACTAM 3.375 GM in DEXTROSE 5% 100 ML IV SCH ×2 (04:13→12:29)
[2019-04-10] MEDS: D5NSS + 20MEQ KCL 20 MEQ/1,000 ML BAG IV SCH (04:13)
[2019-04-10] MEDS: DAPTOmycin 225 MG in SYRINGE 0 ML IV SCH (07:41)
[2019-04-10] MEDS: ENOXAPARIN INJ 40 MG/0.4 ML SYR SQ SCH (07:42)
[2019-04-10] MEDS: FERROUS SULFATE 325 MG TAB PO SCH (07:44)
[2019-04-10] MEDS: FLUOXETINE HCL 20 MG CAP PO SCH (07:44)
[2019-04-10] MEDS: NICOTINE 14 MG/24 HR PATCH TD SCH (07:44)
[2019-04-10 09:23] LABS: Basophils # (auto) 0.01 K/uL (0-0.2); Basophils % (auto) 0.1 %; Eosinophils # (auto) 0.11 K/uL (0-0.5); Eosinophils % (auto) 0.7 %; Hematocrit (blood only) 38.6 % (37-47); Hemoglobin 12.9 g/dL (12.0-16.0); Immature Granulocytes # (auto) 0.08 K/uL (0.00-0.02); Immature Granulocytes % (auto) 0.5 %; Lymphocytes # (auto) 2.75 K/uL (1.2-3.4); Lymphocytes % (auto) 18.5 %; Mean Corpuscular Hemoglobin 29.8 pg (25-34); Mean Corpuscular Hgb Conc 33.4 g/dL (32-36); Mean Corpuscular Volume 89.1 fL (80-100); Mean Platelet Volume 9.7 fL (7.4-10.4); Monocytes # (auto) 0.46 K/uL (0.11-0.59); Monocytes % (auto) 3.1 %; Neutrophils # (auto) 11.49 K/uL (1.4-6.5); Neutrophils % (auto) 77.1 %; Platelet Count 371 K/uL (130-400); RDW Coefficient of Variation 13.8 % (11.5-14.5); RDW Standard Deviation 45.4 fL (36.4-46.3); Red Blood Count 4.33 M/uL (4.2-5.4)
[2019-04-10 09:47] LABS: BUN Creatinine Ratio 7.6 (10-20); Calcium 8.4 mg/dl (8.5-10.1); Est GFR (African American) 98.7; Est GFR (Non-African American) 85.2; Potassium 3.7 mmol/L (3.5-5.1)
--- NOTE | 2019-04-10 09:48 | Surgery Progress Note ---
Date of Service Avani is doing very well this AM Swelling starting to resolve now that the infection was drained. Reviewed gram stain --Staph Aureus. From a surgical point of view Avani can be discharged on oral antibiotics--I would suggest Augmentin 875 q 12 hrs x 10 days. Avani has appointment for drain removal at 9:30 on Apr 12. April 10, 2019 Results & Data Vital Signs (Past 12 Hours) Vital Signs Temp Pulse Pulse Resp BP Pulse Ox 04/10/19 07:18 37.2 C 104 H 18 141/95 H 94 04/10/19 04:12 37.4 C 89 16 126/86 96 04/09/19 23:10 36.5 C 111 H 20 130/94 96 PG Care Time/CCT Total # of Minutes Spent Total Time Spent with Patient: Total time spent is greater than 50% in coordination of care (as documented) at patient's floor/unit and/or counseling patient: Coding Level of Care Code None
--- NOTE | 2019-04-10 13:49 | Hospitalist Progress Note ---
Date of Service April 10, 2019 Assessment & Plan (1) Sepsis: Assessment & Plan (1) Sepsis: Secondary to left facial abscess Primary cutaneous infection secondary to acne lesion manipulation Failed outpatient treatment -- s/p I&D afebrile patient improving overall -- ff up blood cultures ff up drainage cultures -- continue IV Dapto + Zosyn IV Dr. Irizarry consulted Anxiety/mood disorder -- stable Hyperglycemia possibly secondary to steroid administration prior to IV dye administration for recent contrast CT study rule out DM -- check A1c ongoing tobacco abuse -- nicotine patch DVT prophylaxis. Lovenox subcu Full code Disposition pending Admission and Anticipated Discharge Date Admission Date: April 08, 2019 Subjective delayed entry date of service 04/09/19 seen resting in bed, not in distress s/p I&D of facial abscess has some discomfort on the surgical site, but overall feels better no chest pain, shortness of breath, nausea no chills no other symptoms Review of Systems Review of Systems: All systems reviewed & are unremarkable except as noted in HPI & below Physical Exam Physical Exam: General- oriented x 3, not in distress, speaks in sentences with no effort or accessory muscle use Eyes- anicteric Face- (+) swelling on the left face, dressing in place Neck- no JVD Lungs- clear breath sounds bilaterally, no rales/wheezes Heart- normal rate, regular rhythm; no murmurs Abdomen- normal bowel sounds, nondistended, soft, nontender Extremities- no pretibial edema, no calf tenderness Neuro- alert, oriented x 3; no gross focal neurologic deficits Skin- warm & dry Results & Data ([facility]) Vital Signs (Past 12 Hours) Vital Signs Temp Pulse Pulse Resp BP Pulse Ox 04/10/19 07:18 37.2 C 104 H 18 141/95 H 94 04/10/19 04:12 37.4 C 89 16 126/86 96 Laboratory Results all noted and reviewed
--- NOTE | 2019-04-10 13:58 | Hospitalist Progress Note ---
Date of Service April 10, 2019 Assessment & Plan (1) Sepsis: Assessment & Plan (1) Sepsis: Secondary to left facial abscess Primary cutaneous infection secondary to acne lesion manipulation Failed outpatient treatment -- s/p I&D by Dr. Amrik Irizarry- 04/09/19 remains afebrile pain improved significantly -- blood cultures negative so far drainage culture: Staph, sens pending -- received Dapto + Zosyn while admitted -- cleared for discharge by Maxillofacial Surgeon Dr. Irizarry recommend Augment 875mg BID x 10 days will continue to ff up drainage and blood cultures, will call patient if organism is resistant to Augmentin ff up with Dr. Irizarry 2 days after hospital discharge ff up with PCP in 1 week patient given instructions by Dr. Irizarry re: dressing, wound care Anxiety/mood disorder -- stable Hyperglycemia possibly secondary to steroid administration prior to IV dye administration for recent contrast CT study rule out DM -- check A1c: pending, will follow up ongoing tobacco abuse -- nicotine patch given DVT prophylaxis. Lovenox subcu Full code Disposition d/c home ff up with MD's as noted above Admission and Anticipated Discharge Date Admission Date: April 08, 2019 Subjective ff up for sepsis, facial abscess seen resting in bed, comfortable in good spirits states she feels fine overall minimal discomfort on the surgical site tolerating soft diet well denies SOB, dizziness, chest pain, palpitations no other symptoms states she is ready and would like to be discharged today Review of Systems Review of Systems: All systems reviewed & are unremarkable except as noted in HPI & below Physical Exam Physical Exam: General- oriented x 3, not in distress, speaks in sentences with no effort or accessory muscle use Eyes- anicteric Face- (+) mild-moderate left facial swelling- improved dressing in place- no active discharge, bleeding Neck- no JVD Lungs- clear breath sounds bilaterally, no rales/wheezes Heart- normal rate, regular rhythm; no murmurs Abdomen- normal bowel sounds, nondistended, soft, nontender Extremities- no pretibial edema, no calf tenderness Neuro- alert, oriented x 3; no gross focal neurologic deficits Skin- warm & dry Results & Data ([facility]) Vital Signs (Past 12 Hours) Vital Signs Temp Pulse Pulse Resp BP Pulse Ox 04/10/19 07:18 37.2 C 104 H 18 141/95 H 94 04/10/19 04:12 37.4 C 89 16 126/86 96 Laboratory Results Laboratory Results - last 24 hr 04/10/19 04/10/19 04/10/19 09:11 09:11 09:11 WBC 14.90 H RBC 4.33 Hgb 12.9 Hct 38.6 MCV 89.1 MCH 29.8 MCHC 33.4 RDW Std Deviation 45.4 RDW Coeff of Chun 13.8 Plt Count 371 MPV 9.7 Immature Gran % (Auto) 0.5 Neut % (Auto) 77.1 Lymph % (Auto) 18.5 [place] % (Auto) 3.1 Eos % (Auto) 0.7 Baso % (Auto) 0.1 Immature Gran # (Auto) 0.08 H Neut # (Auto) 11.49 H Lymph # (Auto) 2.75 [place] # (Auto) 0.46 Eos # (Auto) 0.11 Baso # (Auto) 0.01 Sodium 137 Potassium 3.7 Chloride 107 Carbon Dioxide 28 Anion Gap 2.0 L BUN 7 Creatinine 0.90 Est Cr Clr Drug Dosing 90.0 Est GFR ( Amer) 98.7 Est GFR (Non-Af Amer) 85.2 BUN/Creatinine Ratio 7.6 L Glucose 141 H Estimat Average Glucose Pending Hemoglobin A1c Pending Calcium 8.4 L
[2019-04-10 14:05] LABS: Estimated Average Glucose 111 mg/dl; Hemoglobin A1C 5.5 % (4.5-5.6)
--- NOTE | 2019-04-10 15:18 | Discharge Summary ---
Date of Service April 10, 2019 Admission HPI Per Admitting Provider History obtained from patient and records. Medical history significant for anxiety/mood disorder, GERD, ongoing tobacco abuse. 1 week history of left cheek swelling which started from patient manipulation of a pimple on the left side of her cheek. No tooth ache, no sore throat symptoms. Some trouble opening mouth secondary to swelling. Patient started on Augmentin outpatient by medical provider. Patient seen at [facility] 3 days ago for worsening swelling without fever without chills. CAT scan maxillofacial CT showed left facial cerebritis with loculated abscess measuring 2.3 cm tracking along left platysma. No I&D done at the [facility]. Augmentin switched to clindamycin by ER provider. Worsening symptoms despite medication compliance. Patient denies chest pain, S OB. At the ER, patient received IV clindamycin. Medical History as above Surgical History : Dental surgery Family History : Asthma, celiac disease Personal/Social history : Half pack daily, occasional EtOH intake, registered nurse Admission Exam Per Admitting Provider GENERAL: Slightly uncomfortable, obese, pleasant, no stridor, no respiratory distress SKIN: Normal color, warm HEENT: [place] palpebral conjunctivae, no ptosis, dry buccal mucosa, tender left facial swelling commencing from the angle of the mouth going down to the left neck NECK : Supple, no tenderness CHEST : CTA, no tenderness HEART : RRR, no obvious murmurs ABDOMEN: Some distention, nontender EXTREMITIES : No LE swelling/tenderness, no other conspicuous deformities noted NEUROLOGIC : Coherent, no facial asymmetry, no other gross focality Principal Diagnosis SEPSIS SECONDARY TO FACIAL ABSCESS, CELLULITIS, S/P INCISION AND DRAINAGE 04/09/19 Discharge Exam General- oriented x 3, not in distress, speaks in sentences with no effort or accessory muscle use Eyes- anicteric Face- (+) mild-moderate left facial swelling- improved dressing in place- no active discharge, bleeding Neck- no JVD Lungs- clear breath sounds bilaterally, no rales/wheezes Heart- normal rate, regular rhythm; no murmurs Abdomen- normal bowel sounds, nondistended, soft, nontender Extremities- no pretibial edema, no calf tenderness Neuro- alert, oriented x 3; no gross focal neurologic deficits Skin- warm & dry Discharge Data Allergies Allergy/AdvReac Type Severity Reaction Status Date / Time No Known Allergies Allergy Unverified 04/08/19 05:50 Consultations 04/08/19 06:25 ED Decision to Admit Stat 04/08/19 08:59 Consult Oromaxillofacial Surgery Routine Procedures Performed Operation Date: 04/09/19 12:00 Actual Procedures p left face abscess Incision and Drainage(Left) - Amrik Driver DMD Hospital Course (1) Sepsis: Assessment & Plan (1) Sepsis: Secondary to left facial abscess Facial Cellulitis, Primary cutaneous infection secondary to acne lesion manipulation Failed outpatient treatment -- s/p I&D by Dr. Amrik Driver- 04/09/19 remained afebrile pain improved significantly -- blood cultures negative so far drainage culture: Staph aureus, sens pending -- received Dapto + Zosyn while admitted -- cleared for discharge by Maxillofacial Surgeon Dr. Driver recommend Augment 875mg BID x 10 days will continue to ff up drainage and blood cultures, will call patient if organism is resistant to Augmentin ff up with Dr. Driver 2 days after hospital discharge ff up with PCP in 1 week patient given instructions by Dr. Driver re: dressing, wound care Anxiety/mood disorder -- stable Smoker -- nicotine patch given Disposition d/c home ff up with MD's as noted above Total Time Total Time Spent Total Time Spent (In Minutes): 60 minutes Discharge Plan Discharge Items Patient Disposition: Home - Self-Care Reason For Visit: SEPSIS Discharge Diagnosis: Sepsis from facial infection Condition on Discharge: Good Activity: Resume your previous activity Bathing: No limitations Driving/Machine Use: No limitations Non-emergency contact: Surgeon Call non-emergency contact if: you have any medication questions, your symptoms worsen, your temperature is above 101.5, your wound has increased redness, your wound has increased drainage and your wound pain has increased Follow-up/Referrals: Sushma Spear DO [Primary Care Provider] - 04/15/19 10:45 am Amrik Driver DMD [Physician] - 04/12/19 9:30 am Diet: Regular Diet Comment: SOFT DIET Addtl Attending Provider Instructions: ADDITIONAL ACTIVITY RECOMMENDATIONS: * [place] teeth after every meal. It is very important to keep your mouth clean to prevent infection. SPECIAL CARE INSTRUCTIONS: * apply heat (hot water bottle or heating pad) for the next two days, as often as possible. * Tomorrow start rinsing your mouth with 1/2 teaspoon salt in 8 ounces warm water. This rinse should be used every 4-6 hours. * Some swelling is common. It should gradually decrease within 4-5 days. * You may experience some discomfort for a few days. If pain or swelling increases, call Dr Driver`s office (# on the appointment card) PLEASE REVIEW YOUR NEW MEDICATION LIST AND FOLLOW INSTRUCTIONS CAREFULLY. DO NOT TAKE MORE THAN 3,000MG OF TYLENOL WITHIN 24 HOURS. TAKE PROBIOTICS DAILY. DRINK PLENTY OF FLUIDS. AMBULATE FREQUENTLY AT HOME. FOLLOW WOUND CARE INSTRUCTIONS BY DR. DRIVER. CALL DR. DRIVER'S OFFICE OR RETURN TO THE ER IMMEDIATELY IF WITH RECURRENCE OR WORSENING OF SYMPTOMS, FEVER/CHILLS, INCREASING SWELLING, PAIN, BLEEDING, DISCHARGE FROM THE SURGICAL SITE. Pending Studies at Discharge: Yes Studies:: Final results of blood and drainage cultures Stand-Alone Forms: [facility], Work/School Release (Inpt), Smoking Cessation Medications and DC Order Prescriptions: New amoxicillin-pot clavulanate [Augmentin] 875-125 mg tablet 1 tab PO Q12H 10 Days Qty: 20 RF: 0 acetaminophen [Tylenol Extra Strength] 500 mg tablet 500 mg PO Q6H PRN (Reason: pain) Qty: 14 RF: 0 Continued fluoxetine [Prozac] 40 mg Capsule 40 mg PO DAILY RF: 0 omeprazole 40 mg Capsule,Delayed Release(Dr/Ec) 40 mg PO DAILY PRN (Reason: Heartburn) RF: 0 ferrous sulfate [iron] 325 mg (65 mg iron) Tablet 325 mg PO DAILY RF: 0 L norgest/e.estradiol-e.estrad [Seasonique] 0.15 mg-30 mcg (84)/10 mcg (7) Tablets,Dose Pack,3 Month 1 tab PO DAILY RF: 0 Discontinued clindamycin HCl 150 mg capsule 450 mg PO TID RF: 0 Discharge Orders: Discharge Order (Routine); Ordered 04/10/19 Ordered By: Rodrigo [place]/Other Patient Handouts: Sepsis, ED Staph Skin Infec Abscess IandD, ED Cellulitis Facial, ED Dental Abscess Facial Cellulitis Admission Data Admit Date/Time: 04/08/19 06:56 Attending Provider: Rodrigo Ace Admit Provider: Jacky Szymanski Primary Care Provider: Sushma Spear Other Providers: Jacky Szymanski ; Amrik Driver Other Interventions: Discharge Summary Assessment (RN) Last Done: 04/10/19 14:38
--- NOTE | 2019-04-24 11:07 | Operative Report ---
DATE OF OPERATION: 04/09/2019 ADMITTING DIAGNOSES: Acute facial cellulitis involving the left mental area and the left lower lip, upper lip and cheek. PREOPERATIVE DIAGNOSIS: Acute facial infection. POSTOPERATIVE DIAGNOSES: Acute facial cellulitis involving the left mental area and the left lower lip, upper lip and cheek. Acute facial infection. OPERATION: Incision and drainage of left facial infection involving the submental and the upper and lower lip surrounding the orbicularis saundra muscle. BRIEF HISTORY: The patient was admitted to [facility] with acute facial cellulitis that failed outpatient therapy. According to history, the patient had a small pimple on her chin area that she picked a few days ago. Over the last few days, the area became infected. She developed an acute facial cellulitis from the submental area on the left side involving the chin, the lip, both lower lip, corner of the mouth and upper lip almost to the midline as well as the cheek. The tissue was extremely red and hard and indurated. There was no drainage. The patient was seen in the Emergency Room and because of the extent of the laceration, her inability to open her mouth because of the pain and swelling, it was decided that she be admitted and placed on IV antibiotics. I was consulted for management. When I saw the patient, she was awake and alert and she definitely had an acute swelling. The swelling was very dense and it was my opinion that we needed to get her on IV antibiotics, use heat therapy and then drain the infection once it becomes fluctuant. Over the ensuing 24 hours, the infection responded to the antibiotics and the area became fluctuant. The redness had also increased. It was now time for drainage. At this time, the patient was taken to the Operating Room. DESCRIPTION OF PROCEDURE: Once the patient was cleared to undergo general anesthesia, she braced under general anesthesia via an orotracheal intubation. After adequate anesthesia obtained, the patient was prepped and draped in usual manner for I and D of the left facial, lip area. The patient was identified as Avani Nuñez. We ensured that we had the appropriate equipment for the procedure, the proper positioning and allergies were checked. After everyone agreed, the patient was then prepped in the usual manner for an extraoral incision and drainage. Once the area was isolated and facial dressings were applied, the operation began. Initially with the use of a large 18 gauge needle, I was able to place this into the most fluctuant area and drained some pus. This pus was going to be used for a culture and sensitivity. Now using a 15 blade in the most dependent area under the inferior border of the mandible on the left side, a small incision was made into the skin. Now using a hemostat, I was able to place the hemostat up into the infected area. By doing so, copious amounts of pus extruded from the wound. This pus was also sent for pathologic determination with a swab for culture and sensitivity. I then introduced the smaller hemostat from the submental area up into the chin and into the corner of the mouth. I was able to round the corner of the mouth and into the upper lip. Because of the pressure necrosis of the swelling against the upper front teeth, there was an ulcer in mucosa of the upper lip. It was at this point that I exited with the hemostat. By doing so, I evacuated even further loculations of pus. When I was satisfied that all of the loculations of pus were evacuated, I then placed a quarter inch [place] drain which I pulled from the upper lip mucosal incision through the upper lip around the corner of the mouth and out through the submental area. Once I was satisfied that we establish good drainage, I then used a 3-0 nylon suture and sutured the drain to the soft tissue. When all was said and done, we had evacuated the area. I had a very high suspicion that we were dealing with some kind of an anaerobic or MRSA infection. At this time, the patient was allowed to recover in the usual manner. Prior to full recovery, the patient's facial area was cleansed and a small pressure dressing was applied over the exiting drain. At this time, the patient was extubated and upon full extubation, she was transferred to the Recovery Room breathing in satisfactory condition with all vital signs stable. Estimated blood loss was approximately 5 mL of blood, but we had a good 10 mL of purulent material that was drained from the extensive infection of the upper lip, lower lip and cheek area. The drain was functioning well. Once the patient was brought to the Recovery Room, she was breathing in satisfactory condition with all vital signs stable. The drain was in place and we reviewed the postoperative management which would include return to the floor, continuation of the heat and IV antibiotics with discharge probably in 24 hours and then follow up in my office in approximately 2-3 days for drain removal. I attest to the content of the Intraoperative Record and any orders documented therein. Any exceptions are noted below. ARIEL
== END 2019-04-10 16:02 | disposition home or self-care (01) | DRG 854 ==
LOC: ED 04:12 → 2W 06:56 → 3N 04-09 15:04